=== PATIENT | female | born 1970 | race Hispanic/Latino ===

== ENCOUNTER 2018-04-07 11:10 | Outpatient (CLI) | payer BC ==
--- NOTE | 2018-04-08 10:20 | Mammography Report ---
Bilateral mammogram: No previous studies are available. CAD study utilized. Findings: Heterogeneous breast parenchyma bilaterally. 4 mm circumscribed density upper outer left breast and upper posterior right breast. No microcalcification. Normal axilla. Impression: Focal asymmetry right breast and circumscribed density left breast. Recommend spot compression and if necessary sonographic examination. BI-RADS CATEGORY: 0 = Needs additional imaging evaluation ACR BI-RADS MAMMOGRAPHIC CODES: 0 = Needs additional imaging evaluation; 1 = Negative; 2 = Benign; 3 = Probably benign; 4 = Suspicious; 5 = Malignant; 6 = Known biopsy-proven malignancy COMMENT: 1. Dense breast tissue, i.e., adenosis, fibrocystic changes, etc., may obscure an underlying neoplasm. 2. Approximately 10% of cancers are not detected with mammography. 3. A negative mammography report should not delay biopsy if a clinically suspicious mass is present. COMMENT: Patient follow-up letters are generated in [employer].
== END 2018-04-07 11:11 | disposition home or self-care (01) ==
LOC: SPVWC 11:10
PROVIDERS: ATTEND Obstetrics & Gynecology
DX: Z12.31 Encounter for screening mammogram for malignant neoplasm of breast (principal); K21.9 Gastro-esophageal reflux disease without esophagitis
CPT/HCPCS: 77067

== ENCOUNTER 2019-07-23 14:01 | Outpatient (CLI) | payer BC ==
--- NOTE | 2019-07-26 11:07 | Mammography Report ---
DIGITAL SCREENING MAMMOGRAM WITH CAD, 07/23/2019 INDICATION: Routine screening mammography. TECHNIQUE: Digital bilateral 2D mammography was obtained in the craniocaudal and mediolateral obliq ue projections. This examination was interpreted with the benefit of Computer-Aided Detection analysi s. COMPARISON: 04/07/2018 FINDINGS: Breast Density: The breasts are heterogeneously dense, which may obscure small masses. There is no evidence of dominant mass, suspicious calcifications or architectural distortion in eithe r breast. IMPRESSION: No mammographic evidence of malignancy. Follow up recommendation: Routine yearly BI-RADS Category 2: Benign. A "normal" or negative report should not discourage follow up or biopsy of a clinically significant f inding. A written summary of these findings will be mailed to the patient. The patient will be entered into a mammography reporting system which will generate a reminder letter for the patient's next appointmen t at the appropriate interval. The [employer] recommends yearly mammograms starting at age 40 and continuing as l valerie as a woman is in good health. Breast MRI is recommended for women with an approximate 20-25% or greater lifetime risk of breast cancer, including women with a strong family history of breast or ova hasmukh cancer or who have been treated for Hodgkin's disease. Signer Name: Taras Escamilla MD Signed: 07/26/2019 11:03 AM Workstation Name: [id number]
== END 2019-07-23 14:02 | disposition home or self-care (01) ==
LOC: MAMMO 14:01
PROVIDERS: ATTEND Obstetrics & Gynecology
DX: Z12.31 Encounter for screening mammogram for malignant neoplasm of breast (principal)
CPT/HCPCS: 77067